=== PATIENT | male | born 1950 | race Caucasian/White ===

== ENCOUNTER 2017-02-19 10:32 | Inpatient (IN) ==
[2017-02-19] MEDS ORDERED: NS 1,000 ML IV ONE (11:04)
[2017-02-19 11:05] LABS: MANUAL DIFF NEEDED? NO
[2017-02-19] MEDS ORDERED: CARDIZEM IV ONE ×3 (11:20→15:06)
[2017-02-19 11:22] LABS: INR 1.07; PROTIME 11.3 Seconds (9.2-11.7)
[2017-02-19] MEDS ORDERED: NS 1,000 ML ONE (11:22)
[2017-02-19 11:27] LABS: BASO% 0.2 % (0.0-0.8); EOS# 0.03 X1000 (0.0-0.7); EOS% 0.2 % (0.0-10.0); HEMATOCRIT 40.4 % (42.0-52.0); HEMOGLOBIN 13.6 g/dL (14.0-18.0); IMM GRAN% 0.6 % (0.0-0.5); LYMPH# 1.61 X1000 (1.2-3.4); LYMPH% 9.3 % (20.5-51.1); MCH 32.1 PG (27-31); MCHC 33.7 g/dL (33-37); MCV 95.3 FL (81-99); MONO# 1.45 X1000 (0.11-0.59); MONO% 8.4 % (1.7-9.3); MPV 11.1 FL (7.4-10.4); NEUT% 81.3 % (42.2-75.2); PLT 263 X1000 (130-400); RBC 4.24 XMIL (4.7-6.1)
[2017-02-19] MEDS ORDERED: NS 2,500 ML IV ONE (11:42)
[2017-02-19] MEDS ORDERED: VANCOMYCIN IV PER PHARMACY MISC SCH (11:45)
[2017-02-19] MEDS ORDERED: ZOSYN 3.375 GM/NS 50 ML IV SCH (11:45)
[2017-02-19 11:49] LABS: AGAP 16; ALKALINE PHOSPHATASE 83 U/L (32-122); BUN 11 mg/dL (8-22); CALCIUM 8.5 mg/dL (8.8-10.2); CHLORIDE 94 mmol/L (98-107); COSMO 262; GOT 80 U/L (10-34); GPT 145 U/L (10-44); POTASSIUM 4.7 mmol/L (3.5-5.1); SODIUM 131 mmol/L (136-145); TCO2 21 mmol/L (25-35); TOTAL BILIRUBIN 1.44 mg/dL (0.20-1.00); TOTAL PROTEIN 6.3 g/dL (6.3-8.3)
[2017-02-19] MEDS: SODIUM CHLORIDE 0.9% INJ SCH (12:46)
[2017-02-19] MEDS: PROTONIX IV SCH (12:46)
[2017-02-19 13:12] LABS: URINE CULTURE NEEDED? NO; URINE MICRO REVIEW NEEDED? NO; URINE SOURCE CLEAN CATCH
[2017-02-19 13:21] LABS: BILIRUBIN URINE NEGATIVE (NEGATIVE); BLOOD URINE NEGATIVE (NEGATIVE); COLOR YELLOW; GLUCOSE URINE NEGATIVE (NEGATIVE); LEUKOCYTES URINE NEGATIVE (NEGATIVE); NITRITE URINE NEGATIVE (NEGATIVE); PH URINE 6.5; PROTEIN URINE NEGATIVE (NEGATIVE); SP GRAVITY URINE 1.007; TURBIDITY URINE CLEAR (CLEAR); UROBILINOGEN URINE NORMAL (NORMAL)
[2017-02-19 13:23] LABS: UR EPITHELIAL CELLS <10 /HPF (<10); URINE BACTERIA NEGATIVE /HPF; URINE RBC <10 /HPF (<10); URINE WBC <10 /HPF (<10)
--- NOTE | 2017-02-19 13:31 | EKG Report ---
Test Performed on : 02/19/2017 10:27:49 AM Test Reason : possible endocarditis Blood Pressure : / mmHG Vent. Rate : 167 BPM Atrial Rate : 166 BPM P-R Int : 000 ms QRS Dur : 108 ms QT Int : 298 ms P-R-T Axes : 000 051 -34 degrees QTc Int : 497 ms Supraventricular tachycardia. Incomplete right bundle branch block ST \T\ T wave abnormality, consider inferior ischemia Abnormal ECG No previous ECGs available Confirmed by Michelle BATRES, Wolfgang Duran ([id number]) on 02/20/2017 5:44:51 PM
[2017-02-19] MEDS: ROCEPHIN 2 GM/NS 2 GM/50 ML IVPB IV SCH (15:00)
[2017-02-19] MEDS: CARDIZEM PO SCH ×2 (15:00→21:11)
[2017-02-19] MEDS ORDERED: VANCOMYCIN 2,100 MG in NS 500 ML IV ONE (15:00)
[2017-02-19] MEDS ORDERED: LANOXIN IV SCH (15:15)
[2017-02-19] MEDS ORDERED: NEO-SYNEPHRINE 50 MG in NS 250 ML IV SCH (15:15)
[2017-02-19] MEDS ORDERED: LANOXIN ONE (15:55)
[2017-02-19] MEDS: CARDIZEM 100 MG/NS 100 MG/100 ML IVPB IV SCH ×2 (16:05→22:09)
--- NOTE | 2017-02-19 16:26 | CONSULTATION ---
DATE OF CONSULTATION: 02/19/2017 CONCLUSION: The patient has Streptococcus mitis bacteremia. I think he most likely has endocarditis. There appeared to be septic emboli or just plain abscesses due to bacteremia in the spleen. There is a nodule in the lung but I do not think that is related to the patient's Streptococcus bacteremia with most likely endocarditis. RECOMMENDATIONS: I have placed the patient on Rocephin 2 g IV every 12 hours. I have put in a consult for Cardiology to see the patient because he has a marked tachycardia and also because I think he has endocarditis and eventually will need a transesophageal echocardiogram. We have already ordered an echocardiogram for Cardiology to read today. DISCUSSION: The patient was kindly referred by Dr. Timur Braswell. The patient for the past 2 weeks has had fever and chills. He was not having any cough or dysuria. He was not having any nausea or vomiting, but he did have a decrease in his appetite. The patient had studies done as an outpatient. Two blood cultures are growing Streptococcus mitis. The patient had a CT angiogram of the chest which showed a pulmonary nodule. CT of the abdomen shows scattered low- density lesions in the spleen, which I think are due to either septic emboli or small abscesses that have formed because of the bacteremia. His other laboratory studies show a CBC with a white count of 17,230. Hemoglobin 13.6, and platelet count 263,000. Blood cultures done here are pending. The patient's creatinine on the lab work sent to me by Dr. Braswell was normal. PAST MEDICAL HISTORY/REVIEW OF SYSTEMS: Eyes and Ears: The patient denies difficulty hearing or seeing. Neck: No stiffness. Respiratory: No cough or shortness of breath. Cardiovascular: No chest pain or palpitations. The patient did have a marked tachycardia this morning. GI: No nausea, vomiting, or diarrhea. The patient has had a decrease in his appetite, however, for the past 2 weeks. Integument: No rash noted. : No dysuria or flank pain. The remainder of the review of systems was completed and was negative. Bone and joints: The patient has a 10-year- history of low back pain. PREVIOUS HOSPITALIZATIONS AND OPERATIONS: He has had a cholecystectomy. He has also had surgical removal of the prostate. MEDICAL DISEASES: Positive for prostate cancer and renal calculi. INFECTIOUS DISEASE HISTORY: Positive for rheumatic fever. FAMILY HISTORY: Positive for cancer. SOCIAL HISTORY[place] is . He is a profit assistant sales center manager. ALLERGIES: He has an allergy to latex. HOME MEDICATIONS: Include Zantac and Levaquin. PHYSICAL EXAMINATION: Vital Signs: Temperature is 97.9 degrees, pulse is 170, respirations 16, blood pressure 124/75. Generally, this is a somewhat ill-appearing, elderly male. He is in no acute distress. Head, eyes, ears, nose, and throat: He can hear my spoken words and see near objects. No drainage is noted from the nose or ears. The patient had a good oral hygiene. Neck: No meningismus. Lungs clear to auscultation. Cardiovascular: Heart was regular and rapid. Abdomen was soft and nontender. Extremities: There was a small amount of edema in both legs. There was no erythema. Neurologic: The patient is alert. He can move his extremities. There is no tremor. His sensation is intact to touch. His strength was good in both the arms and legs. Integument: No rash noted. Thank you for the consult. cc: MD Raimundo Moreira MD MTDD
--- NOTE | 2017-02-19 16:58 | HISTORY AND PHYSICAL ---
CHIEF COMPLAINT: Bacteremia and chills. HISTORY OF PRESENT ILLNESS: Mr. Lobo is a 66-year-old male with a history of GERD who presents directly from Dr. Rosendo Hoffmann' office with positive strep mitis blood cultures . The patient started feeling ill about 3-4 weeks ago. At that time, he saw Dr. Braswell for lower back pain and sciatica. He was also having some upper respiratory congestion consistent with a sinus infection. He was given antibiotics; however, this did not improve his symptoms. He began having severe chills and diaphoresis at night. He went back to Dr. Braswell who obtained blood cultures and started the patient on Levaquin. He also did some imaging of the abdomen which showed splenic infarction. There was also apparently a pulmonary nodule. We do not have that imaging at this time. Records have been requested. The patient ended up having positive blood cultures and was sent to Dr. Rosendo Hoffmann' office today who felt the patient needed to be directly admitted. With the exception of the chills, the patient has no complaints. He denies any shortness of breath, cough. No abdominal pain, nausea, vomiting, or diarrhea. No dysuria and no lower extremity pain. He has been complaining of some lower extremity edema. The patient really has no complaints at all with the exception of the chills and earlier symptoms of upper respiratory infection. When he got to the ER, his heart rate was noted to be 170 with mildly low blood pressure about 100 systolic. His lab work reveals fairly significant leukocytosis as well as elevated liver function tests, mild hyponatremia, mild acidemia. We have re-ordered blood cultures and started the patient on broad-spectrum antibiotics. We are now going to admit him for further treatment and evaluation. PAST MEDICAL HISTORY: 1. GERD. 2. History of rheumatic fever as a child with questionable heart valve damage per patient report. 3. Prostate cancer, status post prostatectomy. SURGICAL HISTORY: Prostatectomy and cholecystectomy. SOCIAL HISTORY: The patient smokes a pack a day. He is . His at the bedside. He denies illicit drug use. He denies any history of IV drug use. He denies any history of alcohol dependence. FAMILY HISTORY: Mother with congestive heart failure and breast cancer. Father with lung cancer. REVIEW OF SYSTEMS: Fourteen-point review of systems obtained and found to be negative with the exception of the HPI. ALLERGIES: Latex. HOME MEDICATIONS: Levaquin 750 mg daily, Zantac 50 mg daily. PHYSICAL EXAMINATION: VITAL SIGNS: Blood pressure is 124/75, heart rate 170, respiratory rate is 16, O2 saturation is 97% on room air. Temperature is 97.9 degrees. GENERAL: This is a well-developed, well-nourished, male, lying in a hospital bed in no acute distress. NEUROLOGIC: The patient is awake, alert, and oriented. He follows commands without focal deficits. HEENT: Head atraumatic and normocephalic. His pupils are equal, round, and reactive to light. Oral mucosa is moist. Trachea is midline. There is no JVD or carotid bruits. CHEST: Clear to auscultation bilaterally. CV: Regular rate and rhythm. S1-S2 is noted. No murmurs, gallops, clicks, or rubs. GI: Soft, nondistended, nontender. Bowel sounds are positive. EXTREMITIES: Without edema, clubbing or cyanosis. Pulses are palpable bilaterally. DIAGNOSTIC DATA: WBC 17.23, hemoglobin 13.6, hematocrit 40.4, platelet count 263. PT at 11.3. INR 1.07. Sodium 131, potassium 4.7, chloride 94, CO2 of 21, anion gap 16. BUN 11, creatinine 0.7 glucose 106, calcium 8.5, total bilirubin 1.4. AST 88, ALT 145. Alkaline phosphatase 83. CK 21. Troponin negative. Protein 6.3, albumin 3. TSH 1.23. UA is negative. EKG shows sinus tachycardia at 170 beats per minute. Chest x-ray is pending. ASSESSMENT AND PLAN: 1. Sepsis with Strep Mitis bacteremia: Dr. Hoffmann has started appropriate abx. We are going to give the patient IV fluids. His lactic acid is within normal limits. We are going to culture his blood, urine, and sputum. We are awaiting the CT results from last week. We may consider re- imaging the patient. 2. Splenic infarction: Again, we are going to review the imaging from [facility]. We may consider re-imaging the patient as he had elevated liver function tests, but for now, we will wait until all of the imaging has been faxed to us. 3. Tachycardia: Initially Sinus, has now changed to Afib with RVR. Cardiology has been consulted, cardizem bolus and gtt has been ordered. 4. Elevated liver function tests: Unclear if secondary to sepsis or other intra -abdominal pathology. He did not have any abdominal pain. He is not vomiting. He has no history of IV drug use or alcohol abuse. We may consider ultrasound or CT once we have reviewed the previous imaging results. 5. Gastroesophageal reflux disease. We have added IV Protonix. Deep venous thrombosis prophylaxis with Lovenox. Further recommendations to follow. Dictated by FANNY Rizo for Avni Church MD cc: FANNY Rizo MD Kenneth E. Mashburn, MD pt examined, agree with above,need to evaluate afib for structural abnormality of the heart APENOT MTDD
[2017-02-19] MEDS: LANOXIN IV SCH ×2 (18:23→20:35)
--- NOTE | 2017-02-19 20:24 | CONSULTATION ---
DATE OF CONSULTATION: 02/19/2017 CONSULTATION REQUESTED BY: Hospitalist Service, Dr. Hoffmann. REASON FOR CONSULTATION: Arrhythmia, tachycardia, possible endocarditis. HISTORY OF PRESENT ILLNESS: Mr. Lobo is a 66-year-old male who states that approximately 3 or 4 weeks ago, he started having symptoms of initially " sciatic pain" in the right side of his leg. He went to his primary doctor who prescribed a steroid shot and pain medications. Subsequently he started having episodes of shaking chills usually during the evening hours, feeling profoundly fatigued afterwards. Then, about a week ago, he went back to his physician who did some blood cultures and recommended a CT scan of the chest that was done on the and then a CT scan of the abdomen and pelvis that was done on the at the [facility]. We do not have a preliminary reports except that apparently one set of blood cultures came back positive for some type of streptococcus. The patient was sent to Dr. Hoffmann for further evaluation. Dr. Rosendo Hoffmann saw the patient today at this office, found him very tachycardic, and recommended immediate admission to the hospital. The patient was sent to the emergency room for assessment. They have done a C reactive protein that is 60.07 and a sedimentation rate that is 75. They have done an echocardiogram which is pending. His 12-lead EKG shows supraventricular tachycardia, rate 167 beats per minute. Eventually he has evolved into what appears to be atrial fibrillation with rapid response. The patient's past medical history is positive for rheumatic fever when he was in 4th grade. He had to spend 1 year laying in bed. His knees were painful and swollen. That eventually subsides. He has a history of prostate cancer. He has had some back pains in the past. Past surgical history positive for tonsillectomy, cholecystectomy, and prostatectomy. SOCIAL HISTORY: He is to his for 10 years. He has 2 grownup sons in their 40s and 1 stepdaughter. The patient works for an [employer] company here in [place]. He smokes a pack a day for the past 50 years. He does not drink or use drugs. FAMILY HISTORY: Mother had breast cancer and CHF, at the age of 67. Father of lung cancer at age 72. ALLERGIES: He is allergic to latex. HOME MEDICATIONS: His reported home medicines at the time of this admission are : 1. Levaquin 750 daily. 2. Zantac 50 mg daily. REVIEW OF SYSTEMS: Review of systems beyond what I have reported is not significant. The patient went to [place] to participate in some [place] fishing, however, when he got there, which was around February 03 through February 05, he felt too ill to do anything. He came back feeling ill. No other positives. He has also noted some swelling of his legs. This is subtle. He has noted no palpitations or syncope. He has apparently been feeling more short of breath than usual. He does have seasonal allergies. PHYSICAL EXAMINATION: Vital signs: Blood pressure 107/75. Pulse fluctuates from 115-140. Temperature 97.9. Respirations 20. General: He is awake, alert. He appears to be flushed, somewhat toxic. HEENT: Otherwise unremarkable. I do not see petechiae in the skin, in the eyelids, or in the nail beds. No mucosal lesions. Chest: Shows diffusely diminished breath sounds especially at the left lung. Cardiac: Heart sounds are irregularly irregular. He does have a holosystolic murmur over the right sternal border and also another one over the apex of the left ventricle suggesting tricuspid and mitral regurgitation. No definite gallop is noted. The heart rate is really very fast for any further details. The intensity of the murmur is about 2 to 3/6. Abdomen: Nontender, soft. I did not feel any splenomegaly or hepatomegaly. Extremities: Showed good distal pulses. He does have 1-2+ peripheral edema. Neurologic: He moves four extremities. He has no obvious deficits. LABORATORY DATA: Urinalysis is negative. Chemistry shows sodium 131, potassium 4.7, BUN 11, ceftriaxone 0.7, chloride 94, carbon dioxide 21, bilirubin 1.44, AST 80, ALT 145. CK 21. Troponin is negative. White count 17,330, hemoglobin 13.6, platelet count 263, 000. IMPRESSION: 1. Patient who presented with episode of fever, recurrent over a period of 2-3 weeks. 2. Positive blood cultures "Streptococcus"?. 3. Heart murmur: mitral +/- tricuspid regurgitation? 4. Cardiac arrhythmia: supraventricular tachycardia, evolving into atrial fibrillation with rapid response. 5. Previous history of rheumatic fever as a child. All of this is very suspicious for subacute vs. acute bacterial endocarditis probably involving possibly the mitral valve and the tricuspid valve?. He does not have any signs of peripheral embolization. RECOMMENDATIONS: At this point in time, we will treat the patient with IV Cardizem, digoxin, and Aaron-Synephrine to control his atrial fibrillation. He is getting broad- spectrum antibiotics per Dr. Hoffmann' instructions. He is at this time getting vancomycin, ceftriaxone. We will follow him in the ICU. I will review echocardiogram done this afternoon and advice. We will consider doing a transesophageal echocardiogram at some point. I would like to see the final report of the CT scan of the chest and abdomen that were done a week ago and also the specific report of his blood culture. Further advice will be forthcoming. Thank you for the opportunity to participate in this patient's evaluation. cc: Zackary Hamm MD MTDD
[2017-02-19] MEDS: NS 1,000 ML IV SCH (20:25)
[2017-02-20] MEDS: CARDIZEM PO SCH ×4 (02:41→20:38)
[2017-02-20] MEDS: NS 1,000 ML IV SCH ×3 (02:53→19:39)
[2017-02-20] MEDS: ROCEPHIN 2 GM/NS 2 GM/50 ML IVPB IV SCH ×2 (02:53→14:33)
[2017-02-20] MEDS ORDERED: VANCOMYCIN 1,800 MG in NS 500 ML IV SCH (03:00)
[2017-02-20] MEDS: CARDIZEM 100 MG/NS 100 MG/100 ML IVPB IV SCH ×3 (05:05→15:09)
--- NOTE | 2017-02-20 05:14 | EKG Report ---
Test Performed on : 02/19/2017 4:42:35 PM Test Reason : afib Blood Pressure : / mmHG Vent. Rate : 130 BPM Atrial Rate : 131 BPM P-R Int : 000 ms QRS Dur : 096 ms QT Int : 310 ms P-R-T Axes : 000 073 063 degrees QTc Int : 456 ms Atrial fibrillation. with rapid ventricular response. Incomplete right bundle branch block Abnormal ECG When compared with ECG of 19-FEB-2017 10:27, (Unconfirmed) Atrial fibrillation. has replaced Sinus rhythm. ST no longer depressed in Inferior leads T wave inversion no longer evident in Inferior leads Unconfirmed Result
--- NOTE | 2017-02-20 05:14 | EKG Report ---
Test Performed on : 02/19/2017 6:24:38 PM Test Reason : Tachycardia Blood Pressure : / mmHG Vent. Rate : 122 BPM Atrial Rate : 100 BPM P-R Int : 000 ms QRS Dur : 096 ms QT Int : 328 ms P-R-T Axes : 000 072 058 degrees QTc Int : 467 ms Atrial fibrillation. with rapid ventricular response. Abnormal ECG When compared with ECG of 19-FEB-2017 16:42, (Unconfirmed) No significant change was found Confirmed by Michelle BATRES, Wolfgang Duran ([id number]) on 02/20/2017 5:55:52 PM
[2017-02-20 06:13] LABS: HEMOGLOBIN 11.7 g/dL (14.0-18.0); MCH 32.3 PG (27-31); MCHC 33.4 g/dL (33-37); MCV 96.7 FL (81-99); MPV 11.2 FL (7.4-10.4); RBC 3.62 XMIL (4.7-6.1)
[2017-02-20 06:24] LABS: AGAP 10; ALBUMIN 2.3 g/dL (3.5-5.0); ALKALINE PHOSPHATASE 64 U/L (32-122); BUN 8 mg/dL (8-22); CALCIUM 8.1 mg/dL (8.8-10.2); CHLORIDE 100 mmol/L (98-107); COSMO 263; GOT 39 U/L (10-34); GPT 93 U/L (10-44); POTASSIUM 4.1 mmol/L (3.5-5.1); SODIUM 132 mmol/L (136-145); TCO2 22 mmol/L (25-35); TOTAL BILIRUBIN 0.92 mg/dL (0.20-1.00); TOTAL PROTEIN 5.7 g/dL (6.3-8.3)
--- NOTE | 2017-02-20 06:44 | EKG Report ---
Test Performed on : 02/20/2017 05:55:06 AM Test Reason : tachycardia Blood Pressure : / mmHG Vent. Rate : 085 BPM Atrial Rate : 166 BPM P-R Int : 000 ms QRS Dur : 098 ms QT Int : 342 ms P-R-T Axes : 000 071 054 degrees QTc Int : 406 ms Atrial fibrillation. with premature ventricular or aberrantly conducted complexes. Incomplete right bundle branch block Abnormal ECG When compared with ECG of 19-FEB-2017 18:24, (Unconfirmed) No significant change was found Confirmed by Michelle BATRES, Wolfgang Duran ([id number]) on 02/20/2017 5:58:30 PM
[2017-02-20] MEDS: LOVENOX SUBQ SCH (08:08)
[2017-02-20] MEDS: LANOXIN IV SCH ×3 (08:51→20:37)
--- NOTE | 2017-02-20 09:26 | Diag Imaging Result Document ---
PROCEDURE NAME: CHEST-2 VIEWS - 02/19/2017 PA AND LATERAL RADIOGRAPH OF THE CHEST: COMPARISON: 02/12/2017. FINDINGS: There has been development of small Dillon B lines at the peripheries of both lungs suggesting mild interstitial edema. Otherwise, no new consolidations are identified. Cardiac silhouette and central vasculature appear to be stable. IMPRESSION: Development of several Dillon B lines at the peripheries of both lungs suggesting mild interstitial edema.
--- NOTE | 2017-02-20 09:37 | ECHO REPORT ---
ORDER DATE: 02/19/2017 ECHOCARDIOGRAPHIC MEASUREMENTS: 1. Interventricular septum 1.1. 2. Left ventricular posterior wall 1.0. 3. Diastolic diameter 4.4 4. Left atrium 4.1. 5. Aorta 3.4. FINDINGS: 1. Normal left ventricular cavity size. Estimated ejection fraction of 60%. 2. Aortic valve leaflets are trileaflet. 3. Mitral valve leaflets had mobile mass suggestive of vegetation of the anterior mitral leaflet, as well as the posterior mitral leaflet. 4. The tricuspid valve, there is a questionable mobile mass as well. 5. Aortic valve leaflets are trileaflet. 6. Peak velocity across the aortic valve less than 2 m/sec. There is no aortic stenosis or regurgitation. 7. There is moderate to severe eccentric mitral regurgitation. 8. Peak velocity across the tricuspid valve was 3.4 m/sec. Pulmonary artery systolic pressure was 63 mmHg. 9. There is pulmonary arterial hypertension. 10. There is no pericardial effusion. RECOMMENDATIONS: 1. Would recommend transesophageal echocardiogram. 2. There is mobile mass on the anterior and posterior mitral leaflet, suggestive of endocarditis. In addition, there is likely to be possible mobile mass in the tricuspid valve; however, would recommend transesophageal echocardiogram. cc: MD Ankit Jack CRNP
--- NOTE | 2017-02-20 10:04 | PROGRESS NOTE ---
DATE: 02/20/2017 CHIEF COMPLAINT: Shortness of breath, fever, irregular heartbeat. SUBJECTIVE: Mr. Lobo is feeling somewhat better today. His heart rate is better controlled. He denies having any chest pain. OBJECTIVE: Vital signs: Temperature 97.8, pulse 93, blood pressure 114/72, respirations 20. General: He is awake, alert. He still appears to be somewhat flushed. HEENT: Unremarkable. Chest: Diffusely diminished breath sounds bilaterally. Cardiac: Heart sounds are irregularly irregular without gallop. He does have a prominent systolic murmur at the apex of the left ventricle, 2-3/6 in intensity consistent with mitral regurgitation. Abdomen: Nontender. Extremities: No edema. Neurological: He moves extremities, follows commands. BLOOD WORK: White count 12,290, hemoglobin 11.6. Sodium 132, potassium 4.1, BUN 8, creatinine 0.6. AST and ALT are coming down. Albumin is 2.3. IMPRESSION: 1. Patient presented with febrile illness of 3-4 weeks' duration with positive blood cultures. This is very consistent with endocarditis. According to Dr. Rosendo Hoffmann, the patient has grown Streptococcus mitis in the blood, which is an oral dweller. 2. Paroxysmal atrial fibrillation with a rapid response. 3. 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 RECOMMENDATION: At this point in time, we will pursue management of his atrial fibrillation with Cardizem, digoxin, and beta-blockers. We will continue to treat the endocarditis with antibiotics under the direction of Dr. Rosendo Hoffmann. We will arrange for a transesophageal echocardiogram to be done February 25 semielectively. After that, we may have to consider referring the patient for surgical management of endocarditis. He may also need a heart catheterization prior to surgical management because of his multiple risk factors for coronary heart disease, the fact that he is a heavy smoker. Further advice will be forthcoming. cc: Zackary Hamm MD [facility]
[2017-02-20 10:59] LABS: HEPATITIS PROFILE ACUTE SEE COMMENTS
--- NOTE | 2017-02-20 12:32 | Diag Imaging Result Document ---
PROCEDURE NAME: CT ABD/PELVIS W/ IV CONT ONLY - 02/20/2017 CT ABDOMEN PELVIS WITH IV CONTRAST ONLY: TECHNIQUE: Exam performed with intravenous contrast only per request of the referring provider. A dose reduction protocol was used. Compared with outside CT abdomen from the [facility] dated 02/15/2017. FINDINGS: There has been development of small bilateral pleural effusions with adjacent dependent atelectasis. There are multiple small calcified granulomas from old granulomatous disease in the liver and spleen. There are no acute changes identified in the liver, adrenal glands, or pancreas. The gallbladder is surgically absent. There are multiple low-density lesions in the spleen. These appear grossly stable compared to previous exam, allowing for some differences in technical factors. The spleen is not substantially enlarged. There is mild prominence of extrarenal pelvis on the left similar to the previous exam. There is no gross hydronephrosis identified. There are subtle low-density areas in the medial cortex at the lower left kidney and at the posterior cortex of mid left kidney. These are difficult to compare due to their subtle nature and differences in technical factors. These may relate to mild left nephritis or to cortical scarring. The remainder of the bilateral kidneys enhance homogeneously. There are nonspecific small retroperitoneal lymph nodes. There are no substantially enlarged lymph nodes identified. There is no evidence of bowel obstruction. The right colon is tortuous, the cecum located at the anterior right mid abdomen. The appendix is not discretely visualized but there is no pericecal inflammation identified. There is colonic diverticulosis which is most extensive along the descending and sigmoid colon. There is no evidence of diverticulitis. There is no free air. There is no substantial free fluid seen. Images of pelvis otherwise show postsurgical changes of prostatectomy. The urinary bladder is mildly distended. IMPRESSION: 1. Development of small bilateral pleural effusions with adjacent dependent atelectasis compared with previous outside exam. 2. Multiple low-density splenic lesions which appear grossly stable. These may relate to unusual inflammatory process or possibly to multiple small splenic infarcts. 3. Mild nephritis versus mild cortical scarring at left kidney. No gross hydronephrosis. 4. No bowel obstruction. Uncomplicated colonic diverticulosis. No free air. [facility]
[2017-02-20] MEDS: PROTONIX IV SCH (12:59)
[2017-02-20] MEDS: SODIUM CHLORIDE 0.9% INJ SCH (12:59)
[2017-02-20] MEDS: LOPRESSOR PO SCH ×2 (13:00→20:38)
--- NOTE | 2017-02-20 18:20 | PROGRESS NOTE ---
DATE: 02/20/2017 SUBJECTIVE: The patient is feeling well. He denies having any fever or chills. Denies having any nausea, vomiting, or diarrhea. OBJECTIVE: Vital signs: Blood pressure 106/60, pulse of 76, respiration 13, temperature 98.3 degrees, saturation of 97% on room air. General appearance: Thin, white male, in no acute distress. HEENT: Anicteric. Clear conjunctivae. Neck: Supple. No JVD. No bruit. Cardiovascular: Tachycardic with irregular rate and rhythm. Abdomen: Soft, nontender, nondistended. Normoactive bowel sounds. Musculoskeletal: No clubbing, cyanosis, or edema. LABORATORY: White count of 12.29, hemoglobin 11.7, hematocrit 35.0, platelets of 237,000. Chemistry: Sodium 132, potassium of 4.1, chloride 100, bicarb 22, BUN 8, creatinine 0.6, glucose of 263. CT of abdomen and pelvis showed persistent bilateral pleural effusions with atelectasis and with multiple low-density splenic lesions that are stable. Blood cultures persistently positive for Streptococcus mitis. ASSESSMENT AND PLAN: This is a 66 year old admitted to the hospital for fever and chills and was found to have persistent bacteremia. 1. Bacteremia. Culture grew out Streptococcus mitis. The patient is on Rocephin 2 g per ID recommendations. We are concerned for endocarditis. Cardiology was consulted and they are making arrangement for a GT within the next 24-48 hours. 2. Atrial fibrillation with rapid ventricular response. At this point, will just keep the patient on Lovenox for DVT prophylaxis. The patient on digoxin, Cardizem, and beta eladia for rate control. 3. Code status. The patient is a full code.
--- NOTE | 2017-02-20 19:47 | PROGRESS NOTE ---
DATE: 02/20/2017 PRESENT ILLNESS: The patient has streptococcal mitis mitral valve endocarditis. He has multiple lesions in the spleen, which I think represent small abscesses due to the patient's bacteremia from his endocarditis. MEDICATIONS: The patient is on Rocephin 2 g IV every 12 hours. PHYSICAL EXAMINATION: Vital Signs: Temperature is 98.3 degrees, pulse 76, respirations 13, blood pressure 106/60. General: This is a somewhat ill-appearing, elderly male. He is in no acute distress. Lungs: Clear to auscultation. Cardiovascular: Heart rate was irregular. Abdomen: Soft and nontender. Neurologic: Patient is alert. He can move all of his extremities. LABORATORY AND X-RAY: The scan of the abdomen shows multiple splenic lesions as mentioned above, the patient's CBC today shows a white count of 12,290, hemoglobin 11.7, and platelet count 237,000. Creatinine 0.6. GFR is greater than 60. The ALT is 93. The patient's echocardiogram showed mitral valve endocarditis. ASSESSMENT AND PLAN: 1. The patient as mentioned above has mitral valve endocarditis. My plan is to continue Rocephin. If his repeat blood cultures remain negative, then I will put in a long-term IV such as a PICC. It is my understanding that the first of next week, the patient will be having a transesophageal echocardiogram performed. 2. Comorbidity: He tells me that approximately 5 months ago he had a tooth pulled. He did get antibiotics after the procedure. Also the patient flosses and he told me that there are times when he flosses that he causes bleeding in his mouth. cc: Rosendo Hoffmann MD
[2017-02-21] MEDS: LOPRESSOR PO SCH ×4 (02:06→20:08)
[2017-02-21] MEDS: CARDIZEM PO SCH ×4 (02:06→20:08)
[2017-02-21] MEDS: CARDIZEM 100 MG/NS 100 MG/100 ML IVPB IV SCH ×3 (02:09→19:12)
[2017-02-21] MEDS: ROCEPHIN 2 GM/NS 2 GM/50 ML IVPB IV SCH ×2 (02:57→15:57)
[2017-02-21] MEDS: NS 1,000 ML IV SCH ×3 (02:58→15:59)
[2017-02-21 04:51] LABS: HEMATOCRIT 39.3 % (42.0-52.0); HEMOGLOBIN 12.6 g/dL (14.0-18.0); MCH 31.8 PG (27-31); MCHC 32.1 g/dL (33-37); MCV 99.2 FL (81-99); MPV 11.8 FL (7.4-10.4); RBC 3.96 XMIL (4.7-6.1)
[2017-02-21 05:06] LABS: AGAP 13; ALBUMIN 2.5 g/dL (3.5-5.0); ALKALINE PHOSPHATASE 69 U/L (32-122); BUN 8 mg/dL (8-22); CALCIUM 8.5 mg/dL (8.8-10.2); CHLORIDE 99 mmol/L (98-107); COSMO 265; GOT 28 U/L (10-34); GPT 73 U/L (10-44); POTASSIUM 4.4 mmol/L (3.5-5.1); SODIUM 133 mmol/L (136-145); TCO2 21 mmol/L (25-35); TOTAL BILIRUBIN 0.68 mg/dL (0.20-1.00); TOTAL PROTEIN 6.4 g/dL (6.3-8.3)
--- NOTE | 2017-02-21 05:57 | EKG Report ---
Test Performed on : 02/21/2017 05:16:56 AM Test Reason : tachycardia Blood Pressure : / mmHG Vent. Rate : 106 BPM Atrial Rate : 147 BPM P-R Int : 000 ms QRS Dur : 094 ms QT Int : 322 ms P-R-T Axes : 000 069 041 degrees QTc Int : 427 ms Atrial fibrillation. with rapid ventricular response. with premature ventricular or aberrantly condu cted complexes. Abnormal ECG When compared with ECG of 20-FEB-2017 05:55, No significant change was found Confirmed by Michelle BATRES, Wolfgang Duran ([id number]) on 02/21/2017 6:41:01 PM
[2017-02-21] MEDS: LANOXIN PO SCH (09:11)
[2017-02-21] MEDS: LOVENOX SUBQ SCH (09:14)
[2017-02-21] MEDS ORDERED: CARDIZEM PO ONE (10:45)
[2017-02-21] MEDS: PROTONIX IV SCH (11:23)
--- NOTE | 2017-02-21 13:08 | PROGRESS NOTE ---
DATE: 02/21/2017 SUBJECTIVE: The patient is feeling well and has no complaint. He is still in and out of atrial fibrillation. Did not have any fevers or chills. OBJECTIVE: Blood pressure 126/76, pulse of 111-122, temperature 98 degrees, saturation of 97% on room air.General Appearance: Thin, white male, in no acute distress. Sitting up in the chair. HEENT: Anicteric. Clear conjunctivae. Neck: Supple. No JVD. No bruits. Cardiovascular: S1, S2 normal rate and rhythm. No murmur, rubs, or gallops. Pulmonary: Clear to auscultation bilaterally. GI: Soft, nontender, nondistended. Normoactive bowel sounds. Musculoskeletal: No clubbing, cyanosis, or edema. LABORATORY: His white count 13.01, hemoglobin 12.6, hematocrit of 39.3, platelets of 191,000, chemistry sodium 133, potassium 4.4, chloride 99, bicarb 21, BUN 8, creatinine 0.6, glucose 109. Liver function test is improving. ASSESSMENT AND PLAN: This is a 66-year-old white male, admitted to the hospital for fever, chills and tachycardia. 1. Endocarditis most likely, mitral valve. The patient is on Rocephin per Dr. Hoffmann's recommendations. The patient is known to him and appeared to have streptococcal mitral valve endocarditis. Cardiology will proceed with a GT when his heart rate is under control. For now we will continue Rocephin. 2. Atrial fibrillation with rapid ventricular response. We will increase his diltiazem to 60 mg p.o. q.6 hours and we will continue to wean him off of the Cardizem drip. The patient is also on a beta eladia per cardiology recommendations along with her digoxin. 3. Deep vein thrombosis prophylaxis. The patient is on Lovenox. 4. Gastrointestinal prophylaxis. The patient is on Protonix.
--- NOTE | 2017-02-21 15:51 | PROGRESS NOTE ---
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 MEDICATIONS: The patient is receiving Rocephin 2 g IV every 12 hours. This is the 2nd day of treatment with the antibiotic. PHYSICAL EXAMINATION: Vital Signs: Temperature is 98.4 degrees, pulse 121, respirations 22, blood pressure 117/69. General: This is an ill-appearing, elderly male who is in no acute distress. Lungs: Clear to auscultation. Cardiovascular: Heart rate was rapid and irregular. Abdomen: Soft and nontender. Neurologic: Patient is alert. He can move his extremities. There is no tremor. LAB AND X-RAY: No new x-ray today. The patient's CBC shows a white count of 13,010, hemoglobin 12.6, and platelet count 191,000. Creatinine is 0.6. GFR is greater than 60. ALT is 73. ASSESSMENT AND PLAN: The patient has mitral valve endocarditis. My plan will be to continue treatment with Rocephin. We are going to get a GT and most likely the patient somewhere along line will be seen by cardiac surgeon. The patient's comorbidity is that he has had a tooth pulled and he flosses and sometimes he bleeds from flossing. cc: Rosendo Hoffmann MD
--- NOTE | 2017-02-21 16:44 | PROGRESS NOTE ---
DATE: 02/21/2017 ADDENDUM: The patient's repeat blood cultures are sterile. Therefore, I have ordered a PICC to be placed tomorrow. cc: Rosendo Hoffmann MD
[2017-02-22] MEDS: CARDIZEM PO SCH ×4 (02:14→20:54)
[2017-02-22] MEDS: LOPRESSOR PO SCH ×4 (02:14→20:54)
[2017-02-22] MEDS: ROCEPHIN 2 GM/NS 2 GM/50 ML IVPB IV SCH ×2 (02:14→15:38)
[2017-02-22 04:02] LABS: HEMATOCRIT 42.2 % (42.0-52.0); HEMOGLOBIN 13.7 g/dL (14.0-18.0); MCH 32.5 PG (27-31); MCHC 32.5 g/dL (33-37); MPV 10.9 FL (7.4-10.4); RBC 4.22 XMIL (4.7-6.1)
[2017-02-22 04:11] LABS: INR 1.1; PROTIME 11.6 Seconds (9.2-11.7)
[2017-02-22 04:35] LABS: AGAP 17; ALBUMIN 2.3 g/dL (3.5-5.0); ALKALINE PHOSPHATASE 71 U/L (32-122); BUN 10 mg/dL (8-22); CALCIUM 8.3 mg/dL (8.8-10.2); CHLORIDE 98 mmol/L (98-107); COSMO 266; GOT 38 U/L (10-34); GPT 73 U/L (10-44); POTASSIUM 4.2 mmol/L (3.5-5.1); SODIUM 132 mmol/L (136-145); TCO2 17 mmol/L (25-35); TOTAL BILIRUBIN 0.64 mg/dL (0.20-1.00); TOTAL PROTEIN 6.9 g/dL (6.3-8.3)
[2017-02-22] MEDS: CARDIZEM 100 MG/NS 100 MG/100 ML IVPB IV SCH (06:44)
--- NOTE | 2017-02-22 07:07 | EKG Report ---
Test Performed on : 02/22/2017 06:04:30 AM Test Reason : tachycardia Blood Pressure : / mmHG Vent. Rate : 090 BPM Atrial Rate : 340 BPM P-R Int : 000 ms QRS Dur : 094 ms QT Int : 332 ms P-R-T Axes : 000 065 034 degrees QTc Int : 406 ms Atrial fibrillation. with premature ventricular or aberrantly conducted complexes. Abnormal ECG When compared with ECG of 21-FEB-2017 05:16, No significant change was found Confirmed by Michelle BATRES, Wolfgang Duran ([id number]) on 02/23/2017 2:19:40 PM
[2017-02-22] MEDS: NS 1,000 ML IV SCH ×3 (07:46→09:09)
[2017-02-22] MEDS: LANOXIN PO SCH (08:47)
[2017-02-22] MEDS: LOVENOX SUBQ SCH (08:47)
[2017-02-22] MEDS ORDERED: NS 250 ML ONE (11:03)
[2017-02-22] MEDS ORDERED: CARDIZEM PO SCH (11:34)
[2017-02-22] MEDS: SODIUM CHLORIDE 0.9% INJ SCH (11:56)
[2017-02-22] MEDS: PROTONIX IV SCH (11:56)
--- NOTE | 2017-02-22 12:25 | Diag Imaging Result Document ---
PROCEDURE NAME: CHEST-PORTABLE - 02/22/2017 PORTABLE CHEST: COMPARISON: Compared to 02/19/2017. FINDINGS: Interval placement of a left-sided PICC line. The tip overlies the distal superior vena cava. No pneumothorax. The lungs are well expanded. The heart is not enlarged. Mild increased interstitial markings similar to the prior exam, which may be fibrosis or even mild pulmonary edema. No pleural effusions identified. IMPRESSION: Left-sided PICC line in good position with the tip overlying the mid superior vena cava.
--- NOTE | 2017-02-22 13:24 | PROGRESS NOTE ---
DATE: 02/22/2017 SUBJECTIVE: The patient is feeling much better today. Denies having any fever or chills. Denies any chest pain or palpitation. OBJECTIVE: Vital signs: Blood pressure is 128/68, pulse of 109, respiration 24, temperature 98.7 degrees. Sat of 95% on room air. General appearance: Thin, white male, in no acute distress. HEENT: Anicteric sclerae. Clear conjunctivae. Neck: Supple. No JVD. No bruit. Cardiovascular: S1, S2. Normal rate and rhythm. No murmur, rubs, or gallops. Pulmonary: Clear to auscultation bilaterally. GI: Soft, nontender, nondistended. Normoactive bowel sounds. Musculoskeletal: No clubbing, cyanosis, or edema. LABORATORY: White count 12.29, hemoglobin 13.7, hematocrit of 42.2, platelets 225,000. Chemistry sodium 132, potassium 4.2, chloride 98, bicarb 17, BUN 10, creatinine 0.6, glucose 173. The liver function test are within normal limits. ASSESSMENT/PLAN: A 66-year-old white male, admitted to the hospital for fever, chills and tachycardia. 1. Might mitral valve endocarditis with Staphylococcus. Infectious Disease is following. The patient is on Rocephin. GT is planned for Saturday. 2. Atrial fibrillation. The rate is still elevated. We will have to titrate up diltiazem seeing as blood pressure is able to tolerate it. 3. Deep vein thrombosis prophylaxis. The patient on Lovenox. 4. GI prophylaxis on Protonix. 5. Will transfer the patient to the floor. CODE STATUS: The patient is a full code.
--- NOTE | 2017-02-22 13:43 | PROGRESS NOTE ---
DATE: 02/22/2017 SUBJECTIVE: Mr. Lobo reports he is doing well. He is tolerating oral intake. OBJECTIVE: Vital Signs: On physical examination, he is afebrile. His heart rate is 101, blood pressure 118/69. General: No acute distress. Cardiovascular: He is in a regular rate and rhythm. I do not hear any obvious murmurs. No S3. No lower extremity edema. Chest exam: Clear bilaterally. No increased work of breathing. Abdomen: Soft, nontender. PERTINENT DATA: White count 12.3, INR is 1.1. Sodium 132, potassium 4.2, BUN is 10, creatinine 0.6. ASSESSMENT: Endocarditis. PLAN: Tentative plan for transesophageal echo on Saturday per Dr. Hamm. I will make him n.p.o. after midnight for the procedure to be done Saturday. cc: Mikey Mercedes MD
--- NOTE | 2017-02-22 15:17 | PROGRESS NOTE ---
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 MEDICATIONS: The patient is on Rocephin in a dose of 2 g IV every 12 hours. This is day 3 of treatment since the patient's blood cultures have become sterile. PHYSICAL EXAMINATION: Vital Signs: Temperature is 98.1 degrees, pulse 50, respirations 20, blood pressure 124/74. General: The patient appears much more healthy today. He is standing and walking. He does not appear short of breath. He is not hurting. Lungs: Clear to auscultation. Cardiovascular: Heart has slowed down quite a bit. The heart rate is regular. I did not hear a murmur today. Abdomen: Soft and nontender. LABORATORY AND X-RAY: Chest x-ray shows clear lung grady and no cardiomegaly. Hepatitis panel is nonreactive. The CBC shows a white count of 12,290, hemoglobin 13.7, and platelet count 225,000. Creatinine is 0.6. GFR is greater than 60. Liver function studies are normal except for an ALT of 73. ASSESSMENT AND PLAN: The patient has mitral valve endocarditis with associated splenic abscesses. My plan is to continue Rocephin for at least 4 weeks and until the lesions in the spleen clear. In 3 days, we are going to get a transesophageal echocardiogram. It appears most likely the patient will be able to go home soon and finish his treatment at home. While he is being treated at home, I plan to make an appointment for him to see a cardiac surgeon. COMORBIDITY: I think has to do with the fact that the patient had a tooth extracted or that he flosses and sometimes bleeds from flossing. cc: Rosendo Hoffmann MD
[2017-02-22] MEDS ORDERED: MELATONIN PO ONE (23:05)
[2017-02-22] MEDS ORDERED: HALL'S COUGH LOZENGE MT PRN (23:35)
[2017-02-23] MEDS: LOPRESSOR PO SCH ×4 (03:45→20:21)
[2017-02-23] MEDS: ROCEPHIN 2 GM/NS 2 GM/50 ML IVPB IV SCH ×2 (03:45→14:37)
[2017-02-23] MEDS: CARDIZEM PO SCH ×3 (05:52→20:21)
[2017-02-23] MEDS: NS 1,000 ML IV SCH (05:54)
[2017-02-23 08:08] LABS: BASO% 0.1 % (0.0-0.8); EOS# 0.01 X1000 (0.0-0.7); EOS% 0.1 % (0.0-10.0); HEMATOCRIT 38.6 % (42.0-52.0); HEMOGLOBIN 12.6 g/dL (14.0-18.0); IMM GRAN# 0.07 X1000 (0.0-0.04); IMM GRAN% 0.4 % (0.0-0.5); LYMPH# 0.78 X1000 (1.2-3.4); LYMPH% 4.4 % (20.5-51.1); MANUAL DIFF NEEDED? YES; MCH 32.1 PG (27-31); MCHC 32.6 g/dL (33-37); MCV 98.2 FL (81-99); MONO# 1.22 X1000 (0.11-0.59); MONO% 6.9 % (1.7-9.3); MPV 10.4 FL (7.4-10.4); NEUT% 88.1 % (42.2-75.2); PLT 276 X1000 (130-400); RBC 3.93 XMIL (4.7-6.1)
[2017-02-23 08:24] LABS: AGAP 12; BUN 11 mg/dL (8-22); CALCIUM 8.2 mg/dL (8.8-10.2); CHLORIDE 100 mmol/L (98-107); COSMO 272; MAGNESIUM 1.9 mg/dL (1.5-2.7); SODIUM 136 mmol/L (136-145); TCO2 24 mmol/L (25-35)
[2017-02-23 08:57] LABS: BANDS 2 % (0-1); LYMPHS 2 % (21-51); MONO 8 % (1-9)
[2017-02-23] MEDS: LANOXIN PO SCH (09:20)
[2017-02-23] MEDS: LOVENOX SUBQ SCH (09:21)
[2017-02-23] MEDS ORDERED: LASIX IV ONE (12:00)
--- NOTE | 2017-02-23 12:27 | PROGRESS NOTE ---
DATE: 02/23/2017 SUBJECTIVE: The patient was having an episode of shortness of breath when he got up this morning and some facial droop, according to his , but none now. He is still very short winded when I talked to him. He did not have any fever or chills. He has a dry cough. OBJECTIVE: Vital signs: Blood pressure 131/76, pulse of 84, respirations 18, temperature of 98.8 degrees, saturations of 91% on room air. General appearance: A thin white male, in moderate distress due to shortness of breath. HEENT: Anicteric. Clear conjunctivae. Neck: Supple. No JVD. No bruit. Cardiovascular: S1, S2. Normal rate and rhythm. No murmur, rubs, or gallops. Pulmonary: Lungs with crackles bilaterally. Gastrointestinal: Abdomen soft, nontender, nondistended. Normoactive bowel sounds. Musculoskeletal: About 1+ pitting edema up to the knee. LABORATORY: White count 17.67, hemoglobin 12.6, hematocrit 38.6, platelets of 276,000. Chemistries: Sodium 136, potassium 4.0, chloride 100, bicarb 24, BUN 11, creatinine 0.5, glucose of 118. Blood culture has not been grown since the . ASSESSMENT AND PLAN: This is a 66-year-old white male, admitted to the hospital for the streptococcal mitral valve endocrine carditis: 1. Endocarditis. We will continue on Rocephin for now. GT scheduled for Saturday. Infectious disease is following. 2. Atrial fibrillation. Rates have been well controlled. We will change his diltiazem to long- acting. 3. Acute shortness of breath, probably pulmonary edema. We will send the patient for chest x- rays. Stop IV fluids. Give him 1 dose of Lasix now. 4. Facial droop. We sent the patient for the CT scan. 5. Deep vein thrombosis prophylaxis. The patient is on Lovenox. CODE STATUS: The patient is a full code. CRITICAL CARE TIME: Thirty-five minutes. Once again, JASKARAN, lab work for tomorrow.
[2017-02-23 13:05] LABS: ALLEN TEST YES; BE 2.5 mmoll (-3.0-3.0); BLOOD TYPE ARTERIAL; DRAW SITE R RADIAL; METHB 1.8 % (0.0-1.5); O2(CT) 16.8 mL/dL (15.0-23.0); PCO2(98.6) 37 mmHg (35-45); PO2(98.6) 64 mmHg (60-100); SAMPLE BLOOD; SAO2 96.8 % (95.0-100.0); THB 12.9 g/dL (11.5-17.4); pH(98.6) 7.46 (7.35-7.45)
[2017-02-23 13:07] LABS: MODALITY CANNULA
--- NOTE | 2017-02-23 13:30 | Diag Imaging Result Document ---
PROCEDURE NAME: CHEST-2 VIEWS - 02/23/2017 UPRIGHT AP AND LATERAL CHEST, 3 VIEWS: COMPARISON: Compared to 02/22/2017. FINDINGS: No change in the position of the left-sided chest tube. Heart is not enlarged. There are bilateral infiltrates with pulmonary edema and small effusions. Findings are more pronounced than on the prior exam. IMPRESSION: Overall interval worsening.
[2017-02-23] MEDS: PROTONIX IV SCH (14:34)
[2017-02-23] MEDS: SODIUM CHLORIDE 0.9% INJ SCH (14:34)
--- NOTE | 2017-02-23 14:35 | Diag Imaging Result Document ---
PROCEDURE NAME: HEAD W/O CONTRAST - 02/23/2017 CT BRAIN WITHOUT CONTRAST: TECHNIQUE: Dose reduction protocol. FINDINGS: No parenchymal hemorrhage. No epidural or subdural hematoma. No subarachnoid hemorrhage. No mass identified on this noncontrasted exam. No hydrocephalus. No sinus opacification. No air fluid levels. IMPRESSION: No hemorrhage. Negative brain CT without contrast. A preliminary report was given at 1:47 p.m.
[2017-02-24] MEDS: LOPRESSOR PO SCH ×3 (01:56→20:54)
[2017-02-24] MEDS: ROCEPHIN 2 GM/NS 2 GM/50 ML IVPB IV SCH ×2 (02:01→16:58)
[2017-02-24] MEDS ORDERED: MELATONIN PO ONE ×2 (02:01→21:46)
[2017-02-24] MEDS: CARDIZEM PO SCH ×4 (05:38→20:53)
[2017-02-24] MEDS ORDERED: LASIX IV ONE (07:36)
[2017-02-24 07:43] LABS: BASO% 0.1 % (0.0-0.8); EOS# 0.03 X1000 (0.0-0.7); EOS% 0.2 % (0.0-10.0); HEMATOCRIT 39.8 % (42.0-52.0); HEMOGLOBIN 12.9 g/dL (14.0-18.0); IMM GRAN# 0.06 X1000 (0.0-0.04); IMM GRAN% 0.3 % (0.0-0.5); LYMPH# 1.01 X1000 (1.2-3.4); LYMPH% 5.7 % (20.5-51.1); MANUAL DIFF NEEDED? NO; MCH 31.9 PG (27-31); MCHC 32.4 g/dL (33-37); MCV 98.3 FL (81-99); MONO# 1.14 X1000 (0.11-0.59); MONO% 6.5 % (1.7-9.3); MPV 10.8 FL (7.4-10.4); NEUT% 87.2 % (42.2-75.2); PLT 274 X1000 (130-400); RBC 4.05 XMIL (4.7-6.1)
[2017-02-24 08:12] LABS: AGAP 12; BUN 14 mg/dL (8-22); CALCIUM 8.5 mg/dL (8.8-10.2); CHLORIDE 95 mmol/L (98-107); COSMO 270; POTASSIUM 4.1 mmol/L (3.5-5.1); SODIUM 134 mmol/L (136-145); TCO2 27 mmol/L (25-35)
[2017-02-24] MEDS: LANOXIN PO SCH (08:16)
[2017-02-24] MEDS: LOVENOX SUBQ SCH ×2 (08:17→16:25)
[2017-02-24] MEDS ORDERED: CARDIZEM IV ONE (09:07)
[2017-02-24] MEDS ORDERED: LOPRESSOR PO ONE (09:35)
[2017-02-24] MEDS ORDERED: LASIX IV SCH ×2 (10:00→19:45)
--- NOTE | 2017-02-24 11:36 | PROGRESS NOTE ---
DATE: 02/24/2017 SUBJECTIVE: The patient continues to have tachycardia and shortness of breath, especially with ambulation. OBJECTIVE: Vital Signs: Blood pressure 132/81, pulse ranging from 86-133, respirations 25, temperature 98.4 degrees, saturation of 95% on 2 L of nasal cannula. General Appearance: Thin, white male with mild to moderate distress. HEENT: Anicteric sclerae. Clear conjunctivae. Neck: Supple. No JVD. No bruit. Cardiovascular: Irregular rate and rhythm. No murmur, rubs, or gallops. Pulmonary: Clear to auscultation bilaterally. GI: Soft, nontender, nondistended. Normoactive bowel sounds. Musculoskeletal: No clubbing, cyanosis, or edema. Laboratory Data: White count 17.6, hemoglobin 12.9, hematocrit of 39.8, platelets 274,000. Sodium 134, potassium 4.1, chloride 95, bicarb 27, BUN 14, creatinine 0.6, glucose 121. Chest x- ray showed pulmonary edema bilaterally. A CT of the chest showed left lower lobe embolus. ASSESSMENT/PLAN: A 66-year-old, white male with a history of streptococcal endocarditis affecting the mitral valve. 1. Endocarditis. Infectious disease is following. The patient is on Rocephin. 2. Questionable pulmonary embolism. The patient is going to have a transesophageal echocardiogram tomorrow. He has been on Lovenox while he was in the hospital. We will discuss with cardiology regarding full anticoagulations tomorrow. The question is anticoagulation causing the embolus from the endocarditis or is this just a clot to get worse. We are going to give him a full dose of Lovenox this morning. Hold it this afternoon since the patient is to have the transesophageal echocardiogram tomorrow. 3. Atrial fibrillation. His rates are not very well controlled. We will transfer the patient up to the CCU and start him back on a diltiazem drip. Total critical care time on this patient was 35 minutes. 4. CTA chest showed LLL PE. Check u/s LE. Put him on a full dose of Lovenox. MTDD
--- NOTE | 2017-02-24 11:36 | Diag Imaging Result Document ---
PROCEDURE NAME: ANGIOGRAM/PULMONARY ARTERIES - 02/24/2017 CT CHEST WITH INTRAVENOUS CONTRAST: TECHNIQUE: Dose-reduction protocol. FINDINGS: There are moderate-sized bilateral pleural effusions. The one on the right measures 5.2 cm posteriorly and inferiorly in the midline whereas the one on the left measures 5.0 cm. The heart is mildly prominent. No thoracic aortic aneurysm or dissection. Normal opacification of the pulmonary arteries, however, there is a branch of the left lower lobe artery posteriorly with filling defects. Mildly prominent subcarinal lymph nodes with calcified right hilar lymph nodes. There are diffuse bilateral infiltrates/pulmonary edema as well as basilar atelectasis. IMPRESSION: 1. Left lower lobe pulmonary emboli. 2. Moderate-sized pleural effusions with pulmonary edema. 3. Bilateral infiltrates with basilar atelectasis. The results were called to the patient's nurse on at 10:45 a.m.
[2017-02-24] MEDS: CARDIZEM 100 MG/NS 100 MG/100 ML IVPB IV SCH ×2 (11:50→18:32)
[2017-02-24] MEDS: SODIUM CHLORIDE 0.9% INJ SCH (11:50)
[2017-02-24] MEDS: PROTONIX IV SCH (11:50)
[2017-02-24] MEDS ORDERED: LOPRESSOR PO SCH (16:00)
[2017-02-24] MEDS: LASIX IV SCH (21:54)
--- NOTE | 2017-02-24 23:02 | PROGRESS NOTE ---
DATE: 02/24/2017 SUBJECTIVE: The patient has had some shortness of breath, which has improved. There has been no chest pain. He has had some cough when supine. OBJECTIVE: Vital signs: Blood pressure 113/65. Heart rate 90-110 and irregular, with ECG monitor showing atrial fibrillation. Patient currently on intravenous diltiazem 5 mg/hour, in addition to other medications. Neck: There is no significant jugular venous distention. Chest: Auscultation of the chest reveals bibasilar inspiratory crackles, with some diminished breath sounds at the bases. Heart: Cardiac exam reveals an irregular rate and rhythm, with a grade 2/6 holosystolic murmur at the left trigger apex. Gallop could not be appreciated. Extremities: Without edema. There is no peripheral stigmata of endocarditis. DIAGNOSTIC STUDIES: Chest CT angiogram reports evidence of left lower lobe pulmonary embolus. IMPRESSION: 1. Endocarditis of mitral valve. Streptococcus mitis has grown in blood cultures. Patient on parental antibiotics, directed by infectious disease. 2. Atrial fibrillation with rapid ventricular rate response. 3. Mitral regurgitation, secondary to endocarditis of mitral valve. 4. Pulmonary edema, secondary to mitral regurgitation. RECOMMENDATIONS: 1. Diurese with increase in intravenous Lasix to every 8 hours. 2. Try and optimize heart rate control to facilitate withdrawal of intravenous Cardizem. We will check digoxin level and supplement as needed. Increase metoprolol. Reduce the oral diltiazem. 3. Add low-dose angiotensin converting enzyme inhibitor. 4. Agree with anticoagulation with Lovenox. 5. Tentatively for transesophageal echocardiography/cardioversion. However, patient's clinical condition may necessitate delay. cc: Lio Gutierrez MD
[2017-02-25] MEDS: ROCEPHIN 2 GM/NS 2 GM/50 ML IVPB IV SCH ×2 (02:43→17:24)
[2017-02-25] MEDS: LOPRESSOR PO SCH ×4 (02:43→21:06)
[2017-02-25] MEDS: LASIX IV SCH ×4 (03:16→14:33)
[2017-02-25] MEDS: CARDIZEM PO SCH ×3 (05:26→21:06)
[2017-02-25] MEDS: LOVENOX SUBQ SCH ×2 (05:26→17:25)
[2017-02-25] MEDS ORDERED: PNEUMOVAX 23 IM ONE (06:20)
--- NOTE | 2017-02-25 07:01 | PROGRESS NOTE ---
DATE: 02/25/2017 PRESENT ILLNESS: The patient has Streptococcus mitis, mitral valve endocarditis. He has a splenic abscesses. On pulmonary angiogram was found to have a pulmonary embolus , as well as probable pulmonary edema. The patient also yesterday stood up and he became very dizzy and short of breath. MEDICATIONS: The patient is receiving Rocephin 2 g IV every 12 hours. PHYSICAL EXAMINATION: Vital Signs: Temperature is 98.1 degrees, pulse 99, respirations 20, blood pressure 110/72. General: This is an ill-appearing elderly male, who currently is in no acute distress. Cardiovascular: Irregular heart rate. Lungs: Bibasilar rales. Abdomen: Soft and nontender. Neurologic: Patient is alert. He can move his extremities. There is no tremor. LAB AND X-RAY: The CBC shows a white count of 17,660, hemoglobin 12.9, and platelet count 274,000. Creatinine 0.6. Repeat blood cultures are sterile. The patient on pulmonary angiogram has left lower lobe emboli and bilateral pulmonary edema. ASSESSMENT AND PLAN: For my plan I plan to continue the patient's Rocephin dose of 2 g IV every 12 hours to treat endocarditis, bacteremia, and splenic abscesses. As mentioned in Dr. Gutierrez's note, the patient needs to undergo cardioversion and also have a transesophageal echocardiogram. COMORBIDITIES: He had a tooth extracted awhile ago and when he flosses, it causes bleeding in his mouth. cc: Rosendo Hoffmann MD MTDD
[2017-02-25 08:29] LABS: AGAP 16; BUN 17 mg/dL (8-22); CHLORIDE 90 mmol/L (98-107); COSMO 277; POTASSIUM 3.3 mmol/L (3.5-5.1); SODIUM 138 mmol/L (136-145); TCO2 32 mmol/L (25-35)
[2017-02-25] MEDS: PRINIVIL PO SCH (08:54)
[2017-02-25] MEDS: LANOXIN PO SCH (08:54)
[2017-02-25] MEDS: CARDIZEM 100 MG/NS 100 MG/100 ML IVPB IV SCH ×2 (10:41→14:21)
[2017-02-25] MEDS ORDERED: XYLOCAINE 4% TOPICAL SOLUTION ONE (13:46)
[2017-02-25] MEDS ORDERED: XYLOCAINE 2% VISCOUS ONE (13:46)
[2017-02-25] MEDS ORDERED: SODIUM CHLORIDE 0.9% 10 ML ONE (13:46)
[2017-02-25] MEDS ORDERED: POTASSIUM CHLORIDE 20% LIQUID PO ONE (16:02)
[2017-02-25] MEDS ORDERED: CARDIZEM IV ONE (16:35)
--- NOTE | 2017-02-25 17:53 | PROGRESS NOTE ---
DATE: 02/25/2017 CHIEF COMPLAINT: Irregular heartbeat. SUBJECTIVE: Mr. Lobo continues to feel somewhat weak, slightly short of breath. He is not having any chest pain today. OBJECTIVE: Vital signs: Pulse rate is 120. Blood pressure is 109/71. Temperature 98.6. Respirations 24. General: He is awake. Appears to be chronically ill. Somewhat toxic. HEENT: Unremarkable. Chest: Diminished breath sounds at the bases. Cardiac: Heart sounds are irregularly irregular with a systolic apical murmur, 2 to 3/6. Abdomen: Nontender. Extremities: Show no edema. Neurologic: Moves all extremities. LABORATORY DATA: Today sodium 138, potassium 3.3, BUN 17, creatinine 0.7, chloride 90, carbon dioxide 32. White count yesterday was 17,650, hemoglobin 12.9, hematocrit 39.8. IMPRESSION: 1. Patient who presented with endocarditis of the mitral valve, positive for Streptococcus mitis, with moderate to probably severe degree of mitral regurgitation. 2. Persistent atrial fibrillation with diastolic heart failure. 3. Just recently diagnosed pulmonary embolus in the left lower lobe with corresponding deep venous thrombosis in the lower extremities. This is a preliminary report that we were just given. RECOMMENDATIONS: At this point in time, we may have to consider long-term anticoagulation for his deep venous thrombosis with standard doses of enoxaparin. We will upgrade the dosage of diltiazem, beta-eladia, and digoxin to control his tachycardia. I will obtain a limited echocardiogram this afternoon to reassess his mitral valve. We were planning on doing a transesophageal echocardiogram on him, however, due to the rapid heart rate noted, the bilateral deep venous thromboses, we chose to postpone this for a couple of days to allow for some stabilization of his overall condition. Further advice will be forthcoming. cc: Zackary Hamm MD
[2017-02-25] MEDS: PROTONIX IV SCH (21:06)
[2017-02-25] MEDS: MELATONIN PO PRN (22:27)
--- NOTE | 2017-02-25 22:34 | PROGRESS NOTE ---
DATE: 02/25/2017 SUBJECTIVE: This patient states that he is feeling better. He is not complaining of shortness of breath, he is still on CPAP. OBJECTIVE: Vital Signs: Temperature 98.6 degrees, pulse 103, respiratory rate 24, blood pressure 109/71, O2 saturation 96% on 2 L of nasal cannula. HEENT: Head normocephalic. No trauma. PERRLA. Neck: Supple. No JVD. No masses. Central trachea. Cardiovascular: Irregularly irregular rate and rhythm. No murmurs. No rubs. Chest: Clear to auscultation. No wheezing. No rales. Abdomen: Soft, nontender, nondistended. No hepatosplenomegaly. Extremities: No edema. No clubbing. No cyanosis. No pain. Neurological Examination: The patient is alert and oriented x3. No focal neurological deficits. LABORATORY: Sodium 138, potassium 3.3, chloride 90, bicarbonate 32, BUN 17, creatinine 0.7, glucose 95, calcium 9. ASSESSMENT AND PLAN: 1. Endocarditis, bacteremia and splenic abscesses. We will continue following the recommendation of Dr. Hoffmann. This patient is on Rocephin. He is feeling better. No complaints today. 2. Pulmonary embolism and multiple deep vein thromboses at the level of the left lower extremity. The Vascular team called me and they state that the left distal popliteal, proximal posterior tibial and peroneal vein from the knee to the ankle has a thrombus. This patient is on Lovenox twice a day. Hematology has been consulted. 3. Atrial fibrillation with episodes of rapid ventricular response. This patient is still here in the CIC unit and this patient is on a drip, Cardiology Department is taking care of him. CRITICAL CARE TIME: 35 minutes. cc: Shyam Merchant MD
[2017-02-26] MEDS: CARDIZEM 100 MG/NS 100 MG/100 ML IVPB IV SCH ×2 (02:12→04:28)
[2017-02-26] MEDS: ROCEPHIN 2 GM/NS 2 GM/50 ML IVPB IV SCH ×2 (02:29→14:21)
[2017-02-26] MEDS: LOPRESSOR PO SCH ×4 (02:29→20:17)
[2017-02-26] MEDS: LOVENOX SUBQ SCH ×2 (04:29→17:50)
[2017-02-26] MEDS: CARDIZEM PO SCH ×3 (04:29→20:17)
[2017-02-26 05:39] LABS: MANUAL DIFF NEEDED? NO
[2017-02-26 05:47] LABS: BASO% 0.1 % (0.0-0.8); EOS# 0.06 X1000 (0.0-0.7); EOS% 0.4 % (0.0-10.0); HEMATOCRIT 39.6 % (42.0-52.0); HEMOGLOBIN 12.8 g/dL (14.0-18.0); IMM GRAN# 0.03 X1000 (0.0-0.04); IMM GRAN% 0.2 % (0.0-0.5); LYMPH# 1.35 X1000 (1.2-3.4); MCH 31.8 PG (27-31); MCHC 32.3 g/dL (33-37); MCV 98.3 FL (81-99); MONO# 1.13 X1000 (0.11-0.59); MONO% 8.4 % (1.7-9.3); MPV 11.4 FL (7.4-10.4); NEUT% 80.9 % (42.2-75.2); PLT 284 X1000 (130-400); RBC 4.03 XMIL (4.7-6.1)
[2017-02-26 05:54] LABS: INR 1.11; PROTIME 11.7 Seconds (9.2-11.7); PTT 28.9 Seconds (22.0-36.0)
[2017-02-26 06:03] LABS: AGAP 11; BUN 25 mg/dL (8-22); CALCIUM 8.8 mg/dL (8.8-10.2); CHLORIDE 92 mmol/L (98-107); COSMO 280; POTASSIUM 3.3 mmol/L (3.5-5.1); SODIUM 137 mmol/L (136-145); TCO2 34 mmol/L (25-35)
[2017-02-26] MEDS ORDERED: POTASSIUM CHLORIDE 20% LIQUID PO ONE (07:26)
--- NOTE | 2017-02-26 07:49 | PROGRESS NOTE ---
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 Also yesterday the vascular lab told Dr. Owens that the patient had a deep venous thrombi in his left leg. MEDICATIONS: The patient is receiving Rocephin at a dose of 2 g IV every 12 hours. This is the 7th day of treatment following the patient's blood cultures being sterile. PHYSICAL EXAMINATION: Temperature is 98.4 degrees, pulse 71, respirations 22, blood pressure 116/67.General: This is a fairly healthy-appearing, elderly male. He is in no acute distress. Neurologic: He is alert. He can move his extremities. Lungs: Clear to auscultation. Cardiovascular: Heart rate is regular today. I do not hear a murmur. Abdomen: Soft and nontender. Extremities: Both legs are thin and they do not have any edema in them. I am calling the vascular lab back to see if they can make sure that the patient was found to have a deep venous thrombosis in his legs. LABORATORY: Patient's CBC today shows a white count of 1350, hemoglobin 12.8 and platelet count 284,000, creatinine 0.7. GFR is greater than 60. The vascular lab notified Dr. Owens yesterday the patient had the venous thrombosis in his left leg. The patient is on Xarelto. The patient's creatinine is 0.7. GFR is greater than 60. ASSESSMENT AND PLAN: The patient has a streptococcal mitral valve endocarditis. The plan is to continue him on Rocephin for at least a 6 week period. The patient has multiple lesions in the spleen, which I think represent small abscesses. Therefore, I think we should continue with Rocephin until it looks like the abscesses have cleared. For now, the patient definitely will need 4 weeks of antibiotics, but he may need more if the splenic lesions do not clear up. COMORBIDITIES: He had a tooth extracted recently. He also flosses, and when he does it causes bleeding. cc: Rosendo Hoffmann MD
[2017-02-26] MEDS: LANOXIN PO SCH (09:08)
[2017-02-26] MEDS: PRINIVIL PO SCH (09:09)
--- NOTE | 2017-02-26 10:02 | PROGRESS NOTE ---
DATE: 02/26/2017 CHIEF COMPLAINT: Shortness of breath, malaise, irregular heartbeat. SUBJECTIVE: Mr. Lobo appears to be doing better today. His heart rate is better controlled. He is not as short of breath as yesterday. A 2D echocardiogram was done at the bedside yesterday and is a preliminary impression from my own interpretation. The study shows that the mitral valve is significantly distorted from vegetations. There is probably a severe degree of mitral regurgitation. The patient at the time of the echocardiogram was in atrial fibrillation with a rapid response. At this time, his rate is much better controlled. OBJECTIVE: Blood pressure is 116/67, temperature 98.4, pulse 71, respirations 22. The patient is awake, alert and oriented, no distress. HEENT: Unremarkable. Chest: Diffusely diminished breath sounds. Heart sounds are irregularly irregular. Apical systolic murmur. No gallop noted. Abdomen: Nontender, soft. No masses. No hepatomegaly. Extremities showed decreased pulses. No peripheral edema. Neurologic: Moves all 4 extremities, follows commands. DIAGNOSTIC DATA: Blood work shows sodium 137, potassium 3.3, BUN is 25, creatinine 0.7. C- reactive protein is 58.52, initially was 60. His Pro BNP is 1862. D-dimer is 1.64. Preliminary report of venous ultrasound yesterday indicated that he has deep venous thrombosis in both legs. Specific details are not available at this time. The official report has not been made.Given the fact that patient is not in [facility], these DVT's may have been present at the time of initial hospitalization. (patient had bilateral lower extremity edema at that time). IMPRESSION: 1. The patient presented with symptoms and signs consistent with bacterial endocarditis. This involves the mitral valve, and the valve appears to be significantly affected by it. 2. Persistent atrial fibrillation. 3.The patient also has congestive heart failure with diastolic dysfunction probably arising from the arrhythmia and from the significant mitral regurgitation. RECOMMENDATIONS: We will pursue transesophageal echocardiogram in the morning. Benefits, risks and complications of this have been discussed. After the GT, we will contact [facility] and get advice. Further advice will be forthcoming. cc: MD REINALDO Miguel
--- NOTE | 2017-02-26 14:43 | PROGRESS NOTE ---
DATE: 02/26/2017 SUBJECTIVE: This patient states that he is feeling better. He is not complaining of any shortness of breath or chest pain at this moment. No respiratory distress. He denies nausea, vomiting, diarrhea, constipation. OBJECTIVE: Vital Signs: Temperature 98.1 degrees, pulse 70, respiratory rate 22, blood pressure 112/70, O2 saturation 98 on 2 L of nasal cannula. HEENT: Head normocephalic. No trauma. PERRLA. Neck: Supple. No JVD. No masses. Central trachea. Chest: Clear to auscultation. No wheezing. No rales. Cardiovascular: Irregularly irregular rate and rhythm. No murmurs. No rubs. Abdomen: Soft, nontender, nondistended. No hepatosplenomegaly. Extremities: No edema. No clubbing. No cyanosis. No pain. Neurological: The patient is alert and oriented x3. No focal neurological deficits. LABORATORY: WBC 13.5, hemoglobin 12.8, hematocrit 39.6, platelets 284,000. Sodium 137, potassium 3.3, chloride 92, bicarbonate 34, BUN 25, creatinine 0.7, glucose 128, calcium 8.8. ASSESSMENT AND PLAN: 1. Endocarditis, bacteremia and possible splenic abscesses. I will continue with the same treatment for now. It looks like he is getting better, no complaints today. Infectious Disease Department is following this patient. 2. Pulmonary embolism and multiple deep vein thrombosis at the level of the left lower extremity. Will continue with anticoagulation. Hematology/oncology has been consulted. 3. Atrial fibrillation with episodes of rapid ventricular response. This patient is still here in the CIC unit, Cardiology Department is following this patient. He has no complaints today. We will follow their recommendations. CRITICAL CARE TIME: 40 minutes. cc: Shyam Merchant MD
--- NOTE | 2017-02-26 19:10 | CONSULTATION ---
DATE OF CONSULTATION: 02/26/2017 REASON FOR CONSULT: Patient has pulmonary embolism and multiple DVTs in the left lower extremity. HISTORY OF PRESENT ILLNESS: This patient was admitted on 02/19/2017 after having some fever and chills and not feeling quite right for 3-4 weeks. He is having some back pain and sciatica had some blood cultures drawn due to his fever and came back positive for strep. He was started on Levaquin and was sent to Dr. Rosendo Hoffmann' office, who had the patient directly admitted as patient was having some tachycardia as well. The patient has had a pulmonary arteriogram that has shown left lower lobe pulmonary emboli, moderate pleural effusions with pulmonary edema and bilateral infiltrates with basilar atelectasis. He is currently on Lovenox 90 mg b.i.d. He had a CT abdomen pelvis which also showed some splenic lesions/infarcts. During this hospital course, the patient has been diagnosed with atrial fibrillation with RVR. He also has been diagnosed with bacterial endocarditis and Cardiology is following the patient closely. He is due to have a transesophageal echocardiogram in the morning. A 2D echocardiogram showed mitral valve significantly distorted with vegetations. Patient is currently feeling improved. Denies any dyspnea or chest pain, and continues on Lovenox as above. REVIEW OF SYSTEMS: Negative unless indicated in HPI mile. ALLERGIES: He is allergic to latex. PAST MEDICAL HISTORY: Had a history of rheumatic fever as a child. Prostate cancer status post prostatectomy and GERD. SOCIAL HISTORY: Patient is a smoker, smokes approximately half pack of cigarettes a day. Denies alcohol or illicit drug use. HOME MEDICATIONS: Levaquin and Zantac. DIAGNOSTIC DATA: WBC is down to 13.5, hemoglobin is 12.8, hematocrit 39.6, platelet count 284,000. Sodium is 137, potassium 3.3, BUN is 25, and creatinine is 0.7. Pulmonary arteriogram showed a left lower lobe pulmonary emboli. Moderate sized pleural effusions with pulmonary edema and bilateral infiltrates with basilar atelectasis. PHYSICAL EXAMINATION: Constitutional: Patient is in no acute distress. Vital Signs: Stable. HEENT: Head is normocephalic, atraumatic. Neck: Supple. Trachea is midline. Cardiovascular: S1, S2 audible to auscultation. Pulmonary: Breath sounds clear to auscultation. Normal respiratory effort. Abdomen: Soft, nontender, nondistended. Positive bowel sounds. Extremities: The patient moves all extremities. Neurologic: Alert and orient x3. Psychiatric: Appropriate to situation. ASSESSMENT AND PLAN: 1. Pulmonary embolism with deep vein thrombosis, left lower extremity, due to recent travel: Patient currently on Lovenox 90 mg b.i.d., which we agree with. Will plan to transition to Xarelto when appropriate. 2. Atrial fibrillation with rapid ventricular response per Cardiology. 3. Endocarditis. Bacteremia per Infectious Disease and Cardiology. Patient is scheduled to have a GT in the a.m. Antibiotics per Infectious Disease, ceftriaxone. Dictated by FANNY Linder for Luis A Palencia MD cc: FANNY Linder MD MTDD
[2017-02-26] MEDS: PROTONIX IV SCH (20:17)
--- NOTE | 2017-02-26 23:16 | ECHO REPORT ---
ORDER DATE: 02/25/2017 SUMMARY: 1. Technically difficult study. Study submitted for interpretation on 02/26/2017. 2. Minimal sclerosis of aortic valve demonstrated, with normal aortic valve opening evident. Mitral valve demonstrates vegetation on anterior mitral leaflet, measuring approximately 1.4 x 1.8 cm, and a smaller vegetation on posterior mitral leaflet. A segment of the anterior mitral leaflet appears to be flail. There is [id number] mitral regurgitation. Mitral regurgitation is directed posteriorly. Tricuspid valve is not as well-demonstrated, and vegetation cannot entirely be excluded, although one is not seen. There is mild tricuspid regurgitation. The estimated systolic PA pressure by Doppler is 55 mmHg, suggesting moderate pulmonary hypertension. Pulmonic valve is not well-demonstrated. The aortic root is normal in size. 3. Normal left ventricular dimensions suggested. Estimated left ventricular ejection fraction appears to be at least 55%. No regional wall motion abnormalities are evident. Left atrium appears mildly enlarged. Right atrium and right ventricle are normal in size, with preserved right ventricular systolic function. 4. No pericardial effusion. 5. Inferior vena cava not seen. CONCLUSIONS: 1. Technically difficult study. 2. Vegetation on anterior mitral leaflet and game designer/creative director mitral leaflet as described, with what appears to be flail segment of anterior mitral leaflet, and [id number] posteriorly directed mitral regurgitation. 3. Mild tricuspid regurgitation, with moderate pulmonary hypertension by Doppler. 4. Normal left ventricular systolic function. 5. Mild left atrial enlargement. cc: MD Zackary Vasques MD
[2017-02-27] MEDS: LOPRESSOR PO SCH ×5 (01:05→20:16)
[2017-02-27] MEDS: ROCEPHIN 2 GM/NS 2 GM/50 ML IVPB IV SCH ×2 (02:07→14:40)
[2017-02-27] MEDS: MELATONIN PO PRN (02:39)
[2017-02-27] MEDS: CARDIZEM PO SCH ×3 (04:03→20:16)
[2017-02-27] MEDS: LOVENOX SUBQ SCH ×2 (04:03→16:48)
[2017-02-27 05:11] LABS: MANUAL DIFF NEEDED? NO
[2017-02-27 05:22] LABS: BASO% 0.3 % (0.0-0.8); EOS% 0.7 % (0.0-10.0); HEMATOCRIT 40.3 % (42.0-52.0); HEMOGLOBIN 12.9 g/dL (14.0-18.0); IMM GRAN# 0.03 X1000 (0.0-0.04); IMM GRAN% 0.2 % (0.0-0.5); LYMPH# 1.47 X1000 (1.2-3.4); LYMPH% 10.4 % (20.5-51.1); MCH 31.7 PG (27-31); MONO# 1.09 X1000 (0.11-0.59); MONO% 7.7 % (1.7-9.3); MPV 11.4 FL (7.4-10.4); NEUT% 80.7 % (42.2-75.2); PLT 299 X1000 (130-400); RBC 4.07 XMIL (4.7-6.1)
[2017-02-27] MEDS: LANOXIN PO SCH ×2 (05:51→13:01)
[2017-02-27] MEDS: PRINIVIL PO SCH ×2 (05:51→13:02)
[2017-02-27] MEDS: CARDIZEM 100 MG/NS 100 MG/100 ML IVPB IV SCH (05:52)
[2017-02-27 05:56] LABS: AGAP 12; BUN 23 mg/dL (8-22); CALCIUM 8.7 mg/dL (8.8-10.2); CHLORIDE 94 mmol/L (98-107); COSMO 279; SODIUM 137 mmol/L (136-145); TCO2 31 mmol/L (25-35)
[2017-02-27] MEDS ORDERED: XYLOCAINE 4% TOPICAL SOLUTION ONE (07:40)
[2017-02-27] MEDS ORDERED: SODIUM CHLORIDE 0.9% 10 ML ONE (07:40)
[2017-02-27] MEDS ORDERED: HURRICAINE SPRAY (DOSE) ONE (07:40)
[2017-02-27] MEDS ORDERED: XYLOCAINE 2% VISCOUS ONE (07:40)
[2017-02-27] MEDS ORDERED: CLAVE TWINSITE 32 IN 11959 ONE (08:17)
[2017-02-27] MEDS ORDERED: DEMEROL ONE (08:17)
[2017-02-27] MEDS ORDERED: NS 1,000 ML ONE (08:17)
[2017-02-27] MEDS ORDERED: VERSED ONE (08:17)
[2017-02-27] MEDS ORDERED: CLAVE ANES SET 100 IN 11965 ONE (08:17)
--- NOTE | 2017-02-27 08:35 | PROGRESS NOTE ---
DATE: 02/27/2017 PRESENT ILLNESS: The patient has a streptococcal mitral valve endocarditis with splenic lesions, which I think are due to small abscesses. MEDICATIONS: The patient is receiving Rocephin 2 g IV every 12 hours. This is the eighth day of treatment since the patient's blood cultures became sterile. PHYSICAL EXAMINATION: Vital Signs: Temperature is 98 degrees, pulse 65, respirations 20, blood pressure 111/66. General: Generally, this is a somewhat ill-appearing, elderly male. He is in no acute distress at this time. Cardiovascular: Heart rate is regular. I did not hear a murmur. Lungs: Clear to auscultation. Abdomen: Soft and nontender. Legs: No swelling. LAB AND X-RAY: There is no new x-ray. The CBC today shows a white count of 14,130, hemoglobin 12.9, and platelet count 299,000. Creatinine is 0.6. Repeat blood cultures are sterile. ASSESSMENT AND PLAN: The patient has streptococcal endocarditis with splenic lesions. I plan to continue Rocephin. The patient is to have a transesophageal echocardiogram done today and, depending on how his valve looks, he may be able to go home and finish his treatment at home. I plan to send the patient to a cardiac surgeon in [place] after his discharge from the hospital, or he may be sent sooner depending on what the transesophageal echocardiogram shows. COMORBIDITIES: The patient's comorbidities are tooth extraction and vigorous flossing which sometimes causes bleeding. cc: Rosendo Hoffmann MD
--- NOTE | 2017-02-27 09:26 | ECHO REPORT ---
ORDER DATE: 02/27/2017 PROCEDURE: Transesophageal echocardiogram. INTERPRETING PHYSICIAN: Dr. Hamm INDICATION: Endocarditis, mitral valve, Streptococcus mitis. Abnormal transthoracic echo. DESCRIPTION: After obtaining informed consent, the patient was brought to the cardiac cath lab radiology technologist. Throat was anesthetized with Hurricaine and viscous lidocaine. Two mg Versed, 50 mg Demerol were given in divided doses until adequate sedation accomplished. Esophagus was intubated without difficulty. SUMMARY OF THE MAIN FINDINGS: 1. The left atrium and appendage are well visualized. They appear to be anatomically normal. The left atrium appears to be mildly to moderately dilated. 2. The interatrial septum shows the presence of a patent foramen ovale with a continuous left-to- right shunt of mild to moderate degree. 3. The tricuspid valve looks anatomically normal. It shows a mild to moderate degree of regurgitation. 4. The right ventricle is normal. The outflow tract of the right ventricle is normal. 5. The pulmonic valve looks normal. There is no evidence of pulmonic regurgitation. There is no evidence of endocardial vegetation on the pulmonic valve. 6. The aortic valve has 3 cusps. They open normally. Color flow mapping indicates a very mild degree of regurgitation. 7. The aortic root is not dilated. 8. The descending thoracic aorta and arch are unremarkable. 9. The left ventricle shows normal size and function, ejection fraction of 60% to 65%. 10.The mitral valve is very abnormal. It shows significant distortion of the anterior and posterior leaflets from vegetation and debris with evidence of a perforation at the level of the anterior leaflet as well as the posterior leaflet. 11.There is severe, 4+ degree, of mitral regurgitation with systolic reversal of flow in the pulmonary veins. 12.There is a large piece of tissue attached to the anterior leaflet that his highly mobile, probably at risk of rupturing and embolizing. 13.No pericardial effusion was noted. SUMMARY: In summary, this transesophageal echocardiogram shows: 1. The presence of a large endocardial vegetation with disruption of the entire mitral valve with a severe degree of mitral regurgitation, the presence of 2 perforations . The degree of regurgitation is 4+. 2. Preserved left ventricular systolic function. 3. A mild degree of aortic regurgitation. 4. Unremarkable pulmonic valve. 5. A mild degree of tricuspid regurgitation. 6. Unremarkable right ventricle. 7. Presence of a patent foramen ovale with [id number]-oc-[id number] shunt. RECOMMENDATION: The patient will be referred to the surgical team for surgical management of this condition. The patient tolerated the procedure well. Of note, during the procedure, the patient was found to be in sinus rhythm. cc: Zackary Hamm MD MTDD
--- NOTE | 2017-02-27 10:22 | PROGRESS NOTE ---
DATE: 02/27/2017 SUBJECTIVE: This patient states that he is feeling better. He just came back from a transesophageal echocardiogram pending results. No acute events overnight. OBJECTIVE: Vital Signs: Temperature 98.1 degrees, pulse 62, respiratory rate 16, blood pressure 103/68, oxygen saturation 97% on 2 L of nasal cannula. HEENT: Head normocephalic. No trauma. PERRLA. Neck: Supple. No JVD. No masses. Central trachea. Chest: Clear to auscultation. No wheezing. No rales. Cardiovascular: Regular rate and rhythm. No murmurs. Abdomen: Soft, nontender, nondistended. No hepatosplenomegaly. Extremities: No edema. No clubbing. No cyanosis. No pain. Neurological: The patient is alert and oriented x3. No focal neurological deficits. LABORATORY: WBC 14.1, hemoglobin 12.9, hematocrit 40.3, platelet 299. Sodium 137, potassium 4, chloride 94, bicarbonate 31, BUN 23, creatinine 0.6, glucose 117, calcium 8.7. ASSESSMENT AND PLAN: 1. Endocarditis, bacteremia and possible splenic abscesses. We will continue with the same treatment for now. Infectious Disease Department is following this patient. Today, this patient had a transesophageal echocardiogram pending report. 2. Pulmonary embolism and multiple deep vein thromboses at the level of the left lower extremity. We will continue with anticoagulation. Hematology/Oncology evaluated this patient, and they have recommended to start this patient on Xarelto when indicated. 3. Atrial fibrillation with episodes of rapid ventricular response. At this moment, this patient is on normal sinus rhythm. Continue with anticoagulation. He has no complaints today. CRITICAL CARE TIME: 40 minutes. cc: Shyam Merchant MD
--- NOTE | 2017-02-27 13:14 | Extremity Venous Study ---
PROCEDURE NAME: Venous U/S Bilateral Legs - 02/24/2017 Bilateral lower extremity venous duplex, and color flow imaging study using the [employer] vivid E 9 ultrasound System with a 9 L-D transducer. REFERRING PHYSICIAN: Dr. Hernandez. CIC7, 66-year-old male. TECHNIQUE: Noemi Tejada RVT. INDICATIONS: Pulmonary embolism ICD 10 126.99. FINDINGS: The right common femoral vein and its branches, the deep and superficial femoral veins were satisfactorily imaged. There was evidence of an acute deep venous thrombosis which was non occluding involving the proximal superficial femoral vein. The right popliteal vein and the deep veins below the right knee were all compressible. The superficial veins of the right lower extremity were compressible throughout their length. The left common femoral vein and its branches, deep and superficial femoral veins were also satisfactorily imaged. They had flow through them and were compressible. Again, there was an acute deep venous thrombosis involving the distal left popliteal vein and this propagated more distally into the posterior tibial vein below the knee. The superficial veins of the left lower extremity were compressible throughout their length. INTERPRETATION: 1. Acute nonoccluding deep venous thrombosis involving the proximal superficial femoral vein right thigh. 2. Acute deep venous thrombosis involving the distal left popliteal vein and extending distally into the proximal posterior tibial vein below the knee on the left. There was no evidence of superficial venous thrombosis in either lower extremity. cc: Jayla Lopez MD
[2017-02-27] MEDS: PROTONIX IV SCH (20:16)
[2017-02-28 00:05] VITALS: BP 148/76
--- NOTE | 2017-03-01 06:54 | DISCHARGE SUMMARY ---
ADMISSION DATE: 02/19/2017 DISCHARGE DATE: 02/27/2017 CONSULTATIONS: Dr. Hamm, with cardiology. Dr. Rosendo Hoffmann, with infectious disease. PERTINENT PROCEDURES: 1. Abdomen and pelvis CT showed development of small bilateral pleural effusions , with atelectasis, multiple low-density splenic lesions, which appear grossly stable, mild nephritis versus mild cortical scarring of the left kidney. No bowel obstruction. 2. Head CT was negative. 3. Pulmonary arteriogram showed left lower lobe pulmonary emboli, moderate size pleural effusion, with pleural edema, bilateral infiltrates, with bibasilar atelectasis. 4. Bilateral venous Dopplers of the lower extremities showed acute nonoccluding DVT involving the proximal superficial femoral vein in the right thigh, acute DVT involving the distal left popliteal vein, and extending distally into the proximal posterior tibial vein below the knee on the left. No evidence of superficial venous thrombosis in either lower extremity. 5. Echocardiogram, limited views, that showed vegetation on the anterior mitral leaflet and posterior mitral leaflet, with what appears to be segment on anterior mitral leaflet, and [id number] posteriorly direct mitral regurgitation. 6. GT showed large endocardial vegetation, with disruption of the entire mitral valve, with a severe degree of mitral regurgitation in the presence of 2 perforations, 4+ degree of regurgitation. DISCHARGE DIAGNOSES: 1. 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 GT was performed by Dr. Hamm. It showed large endocardial vegetation, with disruption of the entire mitral valve, with severe degree of mitral regurgitation. The degree of regurgitation is +4. The patient was on IV Rocephin and transferred to [facility] for further treatment of valve replacement. 2. Pulmonary embolism and multiple DVTs of the left lower extremity. The patient continued on anticoagulation. Hematology/oncology evaluated the patient. Recommended Xarelto. 3. Atrial fibrillation with episodes of RVR. Patient was in sinus rhythm at the time of his transfer to [facility]. 4. Congestive heart failure, with systolic dysfunction arising from arrhythmia and from significant mitral regurgitation. HOSPITAL COURSE: Briefly, Mr. Lobo is a 66-year-old male with a history of GERD, rheumatic fever as a child, with questionable heart valve damage, prostate cancer status post prostatectomy, presented as a direct admit from Dr. Rosendo Hoffmann' office, positive for Strep negative blood cultures. The patient started feeling ill 3-4 weeks prior to his admission. He saw his PCP, Dr. Braswell, for lower back pain and sciatica. He was having some upper respiratory congestion, consistent with sinus infection. He was given antibiotics. However , this did not improve his symptoms. He began having severe chills, diaphoresis at night. He went back to Dr. Braswell, who obtained blood cultures and started the patient on Levaquin. He had imaging of the abdomen, which showed a splenic infarct and apparent pulmonary nodule that was done on an outpatient basis. The patient did have positive blood cultures, and was sent to Dr. Rosendo Hoffmann' office, who felt the patient needed to be directly admitted. The patient, due to lack of rooms, was directly admitted to the ED. He was noted to have an elevated heart rate of 170, mildly low blood pressures 100 systolic. His laboratory work reveals fairly significant leukocytosis, as well as elevated liver function, mild hyponatremia, and mild acidemia. Blood cultures were reordered. The patient was started on broad-spectrum antibiotics with fluid resuscitation, as well as a consult with infectious disease. Patient had an EKG that showed atrial fibrillation with RVR. Cardiology was also consulted. He was given a Cardizem bolus and drip. CT of the abdomen and pelvis showed small bilateral pleural effusions with atelectasis, splenic lesions that were grossly stable, mild nephritis versus mild cortical scarring of the kidneys. Patient's initial echocardiogram showed mobile mass on the anterior and posterior mitral leaflets, suggestive of endocarditis. The patient had 2 head [address]s that were negative. The patient had some acute shortness of breath. He underwent a pulmonary arteriogram, as well as bilateral venous Dopplers. The patient did show that he had a pulmonary embolism, as well as acute nonoccluding DVT involving the proximal superficial femoral vein in the right thigh, and acute venous thrombosis involving the distal left popliteal vein, extending distally in the proximal posterior tibial vein below the left knee. The patient was placed on anticoagulation, as well as seen by hematology and oncology, who placed the patient on Xarelto. The patient also underwent a GT that showed the presence of a large endocardial vegetation, with disruption of the entire mitral valve, with a severe degree of mitral regurgitation. The degree of regurgitation was 4 +, with a preserved LV systolic function. Patient was transferred to [facility] , with consultation for cardiac surgeon. Patient was discharged on 02/27/2017. Dictated by FANNY Diaz for Shyam Merchant MD cc: Shyam Merchant MD MTDD
== END 2017-02-28 00:45 | disposition short-term general hospital (02) ==
LOC: ICU 20:23 → 3N 02-22 13:02 → 3S 02-24 11:24
PROVIDERS: ATTEND Internal Medicine